=== PATIENT | male | born 1970 | race Caucasian/White ===

== ENCOUNTER 2017-04-21 18:29 | Emergency (ER) | payer BC ==
[~2017-04-21 18:29] MED LIST: CEPH500T7 PO; EZE10 PO; HYDR-3074 PO; NO RTN MEDS; ROSU20TA23 PO
--- NOTE | 2017-04-21 18:35 | ER Report ---
History and Physical Time Seen By MD: 18:34 HPI/ROS CHIEF COMPLAINT: cough HISTORY OF PRESENT ILLNESS: This is a 46 year old male. He has had cough and upper respiratory symptoms since Sunday. Was seen at urgent care this week and evaluation was negative for influenza. He has had cough and the Tessalon Perles and Codeine cough medicine is not helping much. He has poor appetite and is trying to keep drinking fluids, but is drinking less than normal. He has some chest tightness, but has not noticed any wheezing. No nausea or vomiting. No diarrhea. Normal urination. Slight lightheaded at times, but no dizziness. Symptoms significantly worsened over the last 24 hours. Allergies: Coded Allergies: naproxen (Verified Allergy, Mild, 03/09/16) Home Meds Active Scripts Azithromycin (ZITHROMAX) 250 Mg Tablet, 1 TAB PO QDAY, #4 TAB 0 Refills Prov:PERRY SOLANO MD 04/21/17 Reported Medications Ezetimibe (ZETIA) 10 Mg Tablet, 10 MG PO QDAY, TAB 04/21/17 Rosuvastatin Calcium (CRESTOR) 20 Mg Tablet, 20 MG PO QDAY 03/01/16 Reviewed Nurses Notes: Yes Hx Smoking: No Hx Substance Use Disorder: No Hx Alcohol Use: No Constitutional Vital Sign - Last 24 Hours 04/21/17 04/21/17 04/21/17 04/21/17 18:36 18:37 18:39 18:44 Temp 99.9 Pulse 74 70 66 Resp 20 B/P (MAP) 146/88 146/88 (107) Pulse Ox 92 95 93 O2 Delivery Room Air 04/21/17 04/21/17 04/21/17 04/21/17 18:49 18:54 18:54 18:54 Pulse 66 66 66 Resp 18 Pulse Ox 93 93 93 O2 Delivery Room Air 04/21/17 04/21/17 04/21/17 04/21/17 18:59 19:01 19:04 19:09 Pulse 66 69 73 72 Pulse Ox 100 90 92 04/21/17 04/21/17 04/21/17 04/21/17 19:14 19:24 19:29 19:34 Pulse 77 93 79 78 B/P (MAP) 118/68 (85) Pulse Ox 92 88 94 94 04/21/17 04/21/17 04/21/1704/21/18 19:39 19:40 19:45 19:50 Pulse 76 74 78 B/P (MAP) 121/74 (90) Pulse Ox 94 90 94 04/21/17 04/21/17 04/21/17 04/21/17 19:55 19:59 20:00 20:05 Pulse 74 88 Resp 16 B/P (MAP) 120/69 (86) 132/80 (97) Pulse Ox 93 93 92 O2 Delivery Room Air Intake and Output 04/21/17 04/21/17 04/22/17 15:00 23:00 07:00 Intake Total 1000 ml Balance 1000 ml Physical Exam General Appearance: The patient is alert, has no immediate need for airway protection and no current signs of toxicity. Eyes: Pupils equal and round no injection. ENT: Normal oral mucosa. Moist mucous membranes. Posterior oropharynx is erythematous, with mild post-nasal drainage. Nasal mucosa is erythematous. Tympanic membranes are normal. Neck: Neck is supple and non tender. No lymphadenopathy noted. Respiratory: Lungs are a little diminished throughout. No wheezing noted. Has some rhonchi, but no rales. Cardiac: Regular rate and rhythm Gastrointestinal: Abdomen is soft and non tender, no masses, bowel sounds normal. Musculoskeletal: Extremities have full range of motion. Non tender. Skin: No rashes or lesions. DIFFERENTIAL DIAGNOSIS: After history and physical exam differential diagnosis was considered for what appears to be upper respiratory infection. Medical Decision Making Data Points Result Diagram: 04/21/175 04/21/17 1855 Laboratory Hematology Test 04/21/17 18:44 04/21/17 18:55 Influenza Virus Type A (PCR) Positive (NEGATIVE) Influenza Virus Type B (PCR) Negative (NEGATIVE) Red Blood Count 4.67 M/uL (4.00-5.60) Mean Corpuscular Volume 89.1 fL (80.0-96.0) Mean Corpuscular Hemoglobin 30.9 pg (26.0-33.0) Mean Corpuscular Hemoglobin Concent 34.7 g/dL (32.0-36.0) Red Cell Distribution Width 13.2 % (11.5-14.5) Mean Platelet Volume 8.9 fL (7.2-11.1) Neutrophils (%) (Auto) 72.9 % (39.4-72.5) Lymphocytes (%) (Auto) 21.3 % (17.6-49.6) Monocytes (%) (Auto) 5.3 % (4.1-12.4) Eosinophils (%) (Auto) 0.2 % (0.4-6.7) Basophils (%) (Auto) 0.3 % (0.3-1.4) Nucleated RBC Relative Count (auto) 0.0 /100WBC Neutrophils # (Auto) 4.7 K/uL (2.0-7.4) Lymphocytes # (Auto) 1.4 K/uL (1.3-3.6) Monocytes # (Auto) 0.3 K/uL (0.3-1.0) Eosinophils # (Auto) 0.0 K/uL (0.0-0.5) Basophils # (Auto) 0.0 K/uL (0.0-0.1) Nucleated RBC Absolute Count (auto) 0.00 K/uL Sodium Level 141 mmol/L (137-145) Potassium Level 3.8 mmol/L (3.5-5.0) Chloride Level 104 mmol/L (98-107) Carbon Dioxide Level 25 mmol/L (22-30) Blood Urea Nitrogen 12 mg/dl (9-21) Creatinine 1.00 mg/dl (0.66-1.25) Glomerular Filtration Rate Calc > 60.0 Random Glucose 88 mg/dl (75-110) Calcium Level 8.3 mg/dl (8.4-10.2) Total Bilirubin 0.5 mg/dl (0.2-1.3) Aspartate Amino Transf (AST/SGOT) 140 U/L (0-35) Alanine Aminotransferase (ALT/SGPT) 207 U/L (0-56) Alkaline Phosphatase 114 U/L (0-126) Total Protein 6.9 gm/dl (6.3-8.2) Albumin 3.7 g/dl (3.5-5.0) Chemistry Test 04/21/17 18:44 04/21/17 18:55 Influenza Virus Type A (PCR) Positive (NEGATIVE) Influenza Virus Type B (PCR) Negative (NEGATIVE) White Blood Count 6.5 k/uL (4.5-11.0) Red Blood Count 4.67 M/uL (4.00-5.60) Hemoglobin 14.4 g/dL (14.0-18.0) Hematocrit 41.6 % (42.0-52.0) Mean Corpuscular Volume 89.1 fL (80.0-96.0) Mean Corpuscular Hemoglobin 30.9 pg (26.0-33.0) Mean Corpuscular Hemoglobin Concent 34.7 g/dL (32.0-36.0) Red Cell Distribution Width 13.2 % (11.5-14.5) Platelet Count 124 K/uL (150-450) Mean Platelet Volume 8.9 fL (7.2-11.1) Neutrophils (%) (Auto) 72.9 % (39.4-72.5) Lymphocytes (%) (Auto) 21.3 % (17.6-49.6) Monocytes (%) (Auto) 5.3 % (4.1-12.4) Eosinophils (%) (Auto) 0.2 % (0.4-6.7) Basophils (%) (Auto) 0.3 % (0.3-1.4) Nucleated RBC Relative Count (auto) 0.0 /100WBC Neutrophils # (Auto) 4.7 K/uL (2.0-7.4) Lymphocytes # (Auto) 1.4 K/uL (1.3-3.6) Monocytes # (Auto) 0.3 K/uL (0.3-1.0) Eosinophils # (Auto) 0.0 K/uL (0.0-0.5) Basophils # (Auto) 0.0 K/uL (0.0-0.1) Nucleated RBC Absolute Count (auto) 0.00 K/uL Glomerular Filtration Rate Calc > 60.0 Calcium Level 8.3 mg/dl (8.4-10.2) Total Bilirubin 0.5 mg/dl (0.2-1.3) Aspartate Amino Transf (AST/SGOT) 140 U/L (0-35) Alanine Aminotransferase (ALT/SGPT) 207 U/L (0-56) Alkaline Phosphatase 114 U/L (0-126) Total Protein 6.9 gm/dl (6.3-8.2) Albumin 3.7 g/dl (3.5-5.0) EKG/Imaging Imaging EXAMINATION: Chest 2 Views HISTORY: Cough. COMPARISON: 12/25/2016. FINDINGS: New patchy density in the right lung base is suspicious for pneumonia. The left lung is clear. No pleural effusion or pneumothorax. Normal heart size and pulmonary vascularity. Visualized osseous structures appear intact. IMPRESSION: Mild patchy right basilar opacity, suspicious for pneumonia. Report Dictated By: Bebo Pelletier MD at 04/21/2017 7:39 PM ED Course/Re-evaluation Clinical Indication for ER IV: Hydration, IV Access ED Course After the initial evaluation, an influenza swab was obtained, and IV was started and blood work checked. A chest xray was obtained. The patient did feel a little better after the IV fluids and a DuoNeb breathing treatment. Influenza A came back positive. He is outside the window for Tamiflu. His son and daughter are sick with similar symptoms. Daughter sick for 5 days. Son for 2 days. Gave prescription for his son for Tamiflu BID and a prescription for his for the QD prophylaxis dose for 10 days. His x-ray showed a small patch of early pneumonia in the right base as noted. Started Azithromycin. He will keep using the Codeine cough medicine as needed. Rest and increase fluids. Provided an Albuterol inhaler to use as well. Decision to Disposition Date: Apr 21, 2017 Decision to Disposition Time: 19:54 Depart Departure Latest Vital Signs Vital Signs Date Time Temp Pulse Resp B/P (MAP) Pulse Ox O2 Delivery O2 Flow Rate FiO2 04/21/17 20:05 88 16 132/80 (97) 92 Room Air 04/21/17 18:36 99.9 Impression: Primary Impression: Influenza A Additional Impression: Pneumonia Condition: Improved Disposition: HOME OR SELF-CARE New Scripts Azithromycin (ZITHROMAX) 250 Mg Tablet 1 TAB PO QDAY, #4 TAB 0 Refills Prov: PERRY SOLANO MD 04/21/17 Patient Instructions: Community Acquired Pneumonia (ED), Influenza (ED) Additional Instructions: Take the antibiotic Azithromycin 250mg tablets, one daily for 4 days. Use your albuterol inhaler, take 2 inhalations every 4 hours as needed for worsening cough or shortness of breath. Tylenol and/or Ibuprofen as needed for fever or pain. Rest as you can over the next few days. Increase fluid intake. You can keep using the Guaifenesin with Codeine as needed to suppress the cough and get some sleep. Mucinex can help as an expectorant. Problem Qualifiers Additional Impression: Pneumonia Pneumonia type: due to unspecified organism Laterality: right Lung location : lower lobe of lung Qualified Codes: J18.1 - Lobar pneumonia, unspecified organism PERRY SOLANO MD Apr 21, 2017 18:35
[2017-04-21] MEDS ORDERED: ALBUTEROL/IPRATROPIUM 3 ML NEB NEB ONE (18:45)
[2017-04-21] MEDS ORDERED: NS(*) 0.9% 1000 ML BAG 1,000 ML IV ONE (18:50)
[2017-04-21 19:15] LABS: PLATELET COUNT, AUTOMATED 124 K/uL (150-450)
[2017-04-21] MEDS ORDERED: EZET10TA41 PO (19:33)
--- NOTE | 2017-04-21 19:46 | RADIOLOGY IMAGING REPORT ---
FACILITY: [facility] PATIENT NAME: Jeremias Ross : 1970 MR: [id number] V: [id number] EXAM DATE: ORDERING PHYSICIAN: PERRY SOLANO TECHNOLOGIST: Location: [facility] Patient: Jeremias Ross : 1970 Visit/Account:[id number] Date of Sevice: 04/21/2017 EXAMINATION: Chest 2 Views HISTORY: Cough. COMPARISON: 12/25/2016. FINDINGS: New patchy density in the right lung base is suspicious for pneumonia. The left lung is clear. No ple ural effusion or pneumothorax. Normal heart size and pulmonary vascularity. Visualized osseous structures appear intact. IMPRESSION: Mild patchy right basilar opacity, suspicious for pneumonia. Report Dictated By: Bebo Pelletier MD at 04/21/2017 7:39 PM Report E-Signed By: Bebo Pelletier MD at 04/21/2017 7:41 PM WSN:[id number]
[2017-04-21] MEDS ORDERED: AZITHROMYCIN 250 MG TAB PO ONE (19:55)
[2017-04-21] MEDS ORDERED: ALBUTEROL SULFATE 90 MCG/ACT 8.5 GM HNH INH ONE (19:55)
[2017-04-21] MEDS ORDERED: AZIT-1 PO (19:56)
[2017-04-21 20:05] VITALS: BP 132/80
== END 2017-04-21 20:17 | disposition home or self-care (01) ==
LOC: ER 18:41
DX: J09.X2 Influenza due to identified novel influenza A virus with other respiratory manifestations (principal); J18.1 Lobar pneumonia, unspecified organism
CPT/HCPCS: 71046; 85025; 87502; 94640; 96360; 99284; J7030; J7620; Q0144; 82040; 82247; 82310; 82374; 82435; 82565; 82947; 84075; 84132; 84155; 84295; 84450; 84460; 84520

== ENCOUNTER 2017-04-24 06:49 | Emergency (ER) | payer BC ==
[~2017-04-24] VITALS: Ht 177.8 cm; Wt 87.1 kg
[~2017-04-24 06:49] MED LIST changes: +AZIT-1 PO; +EZET10TA41 PO
[2017-04-24] MEDS ORDERED: ALBUTEROL/IPRATROPIUM 3 ML NEB NEB ONE ×2 (07:10→08:10)
--- NOTE | 2017-04-24 07:10 | ER Report ---
History and Physical Time Seen By MD: 07:07 Hx. of Stated Complaint: PT RECENTLY DX WITH FLU A AND PNEUMONIA. STARTED ON Z PACK. THIS IS HIS 4 TH DAY ON IT AND HE FEELS WORSE WITH CHEST TIGHTNESS, AND COUGH IS WORSE AND LESS PRODUCTIVE HPI/ROS CHIEF COMPLAINT: Cough, influenza A HISTORY OF PRESENT ILLNESS: Patient is a 46-year-old male who presents to department with worsening cough and chest congestion. He was seen on April 21 diagnosed with influenza a there is also concern of a patchy infiltrate on chest x-ray. He is currently on day 4 of 5 of Zithromax but states he feels like his symptoms are getting worse. He was also prescribed Tamiflu which she is continuing to take as well. REVIEW OF SYSTEMS: Respiratory: Cough, shortness of breath Cardiovascular: Chest tightness, no palpitations Gastrointestinal: No vomiting, no abdominal pain. Musculoskeletal: No back pain. Allergies: Coded Allergies: naproxen (Verified Allergy, Mild, 04/24/17) Home Meds Active Scripts Guaifenesin/Pseudoephedrne Hcl (MUCINEX D ER 1,200-120 MG TAB) 1 Each Tab.er.12h , 1 EACH PO Q12H for cough, #30 TAB 0 Refills Prov:MONICA HWANG MD 04/24/17 Amoxicillin/Pot Clav 875-125 Mg Tab (AUGMENTIN 875-125 TABLET) 1 Each Tablet, 1 TAB PO Q12H, #14 TAB 0 Refills Prov:MONICA HWANG MD 04/24/17 Azithromycin (ZITHROMAX) 250 Mg Tablet, 1 TAB PO QDAY, #4 TAB 0 Refills Prov:PERRY SOLANO MD 04/21/17 Reported Medications Ezetimibe (ZETIA) 10 Mg Tablet, 10 MG PO QDAY, TAB 04/21/17 Rosuvastatin Calcium (CRESTOR) 20 Mg Tablet, 20 MG PO QDAY 03/01/16 Past Medical/Surgical History Hypercholesterolemia Hx Smoking: No Hx Substance Use Disorder: No Hx Alcohol Use: No Constitutional Vital Sign - Last 24 Hours 04/24/17 04/24/17 04/24/17 04/24/17 06:53 07:14 07:14 08:17 Temp 98.3 Pulse 71 65 Resp 22 16 B/P (MAP) 151/87 Pulse Ox 92 93 97 O2 Delivery Room Air Room Air Room Air 04/24/17 04/24/17 04/24/17 08:17 08:18 08:18 Pulse 69 73 Resp 16 Pulse Ox 100 O2 Delivery Room Air Physical Exam General Appearance: The patient is alert, has no immediate need for airway protection and no current signs of toxicity. Eyes: Pupils equal and round no injection. Respiratory: Chest is noted for wheezing with cough. Cardiac: regular rate and rhythm Gastrointestinal: Abdomen is soft and non tender, no masses, bowel sounds normal. Musculoskeletal: Neck: Neck is supple and non tender. Extremities have full range of motion and are non tender. Skin: No rashes or lesions. Medical Decision Making Data Points Result Diagram: 04/24/1715 04/24/17 0715 Laboratory Hematology Test 04/24/17 07:15 Red Blood Count 4.44 M/uL (4.00-5.60) Mean Corpuscular Volume 88.0 fL (80.0-96.0) Mean Corpuscular Hemoglobin 30.3 pg (26.0-33.0) Mean Corpuscular Hemoglobin Concent 34.4 g/dL (32.0-36.0) Red Cell Distribution Width 13.0 % (11.5-14.5) Mean Platelet Volume 8.5 fL (7.2-11.1) Neutrophils (%) (Auto) 81.0 % (39.4-72.5) Lymphocytes (%) (Auto) 14.9 % (17.6-49.6) Monocytes (%) (Auto) 3.9 % (4.1-12.4) Eosinophils (%) (Auto) 0.1 % (0.4-6.7) Basophils (%) (Auto) 0.1 % (0.3-1.4) Nucleated RBC Relative Count (auto) 0.0 /100WBC Neutrophils # (Auto) 6.8 K/uL (2.0-7.4) Lymphocytes # (Auto) 1.3 K/uL (1.3-3.6) Monocytes # (Auto) 0.3 K/uL (0.3-1.0) Eosinophils # (Auto) 0.0 K/uL (0.0-0.5) Basophils # (Auto) 0.0 K/uL (0.0-0.1) Nucleated RBC Absolute Count (auto) 0.00 K/uL Sodium Level 138 mmol/L (137-145) Potassium Level 3.0 mmol/L (3.5-5.0) Chloride Level 102 mmol/L (98-107) Carbon Dioxide Level 26 mmol/L (22-30) Blood Urea Nitrogen 10 mg/dl (9-21) Creatinine 0.80 mg/dl (0.66-1.25) Glomerular Filtration Rate Calc > 60.0 Random Glucose 93 mg/dl (75-110) Calcium Level 8.5 mg/dl (8.4-10.2) Chemistry Test 04/24/17 07:15 White Blood Count 8.5 k/uL (4.5-11.0) Red Blood Count 4.44 M/uL (4.00-5.60) Hemoglobin 13.5 g/dL (14.0-18.0) Hematocrit 39.1 % (42.0-52.0) Mean Corpuscular Volume 88.0 fL (80.0-96.0) Mean Corpuscular Hemoglobin 30.3 pg (26.0-33.0) Mean Corpuscular Hemoglobin Concent 34.4 g/dL (32.0-36.0) Red Cell Distribution Width 13.0 % (11.5-14.5) Platelet Count 161 K/uL (150-450) Mean Platelet Volume 8.5 fL (7.2-11.1) Neutrophils (%) (Auto) 81.0 % (39.4-72.5) Lymphocytes (%) (Auto) 14.9 % (17.6-49.6) Monocytes (%) (Auto) 3.9 % (4.1-12.4) Eosinophils (%) (Auto) 0.1 % (0.4-6.7) Basophils (%) (Auto) 0.1 % (0.3-1.4) Nucleated RBC Relative Count (auto) 0.0 /100WBC Neutrophils # (Auto) 6.8 K/uL (2.0-7.4) Lymphocytes # (Auto) 1.3 K/uL (1.3-3.6) Monocytes # (Auto) 0.3 K/uL (0.3-1.0) Eosinophils # (Auto) 0.0 K/uL (0.0-0.5) Basophils # (Auto) 0.0 K/uL (0.0-0.1) Nucleated RBC Absolute Count (auto) 0.00 K/uL Glomerular Filtration Rate Calc > 60.0 Calcium Level 8.5 mg/dl (8.4-10.2) EKG/Imaging EKG Interpretation EKG shows normal sinus rhythm with ventricular rate of 60 bpm. Monitor Interpretation: Normal Sinus Rhythm Imaging FACILITY: [facility] [place] PATIENT NAME: Jeremias Ross : 1970 MR: [id number] V: [id number] EXAM DATE: ORDERING PHYSICIAN: MONICA HWANG TECHNOLOGIST: Location: [facility] [place] Patient: Jeremias Ross : 1970 Visit/Account:[id number] Date of Sevice: 04/24/2017 Exam type: CHEST PA AND LAT History: Sick for one week Comparison: April 21, 2017. Findings: There is been interval worsening of the patchy infiltrate in the right lower lobe. Mildly increased linear stranding in the left lung base may represent additional developing infiltrate. There is been development of a tiny right pleural effusion. The cardiac silhouette is normal in size. IMPRESSION: 1. Interval worsening of the right lower lobe infiltrate when compared to April 21, 2017 Increased linear stranding left lung base worrisome for additional developing infiltrate Report Dictated By: Huyen Canales MD at 04/24/2017 8:20 AM Report E-Signed By: Huyen Canales MD at 04/24/2017 8:22 AM WSN:[email or web address] ED Course/Re-evaluation ED Course 04/24/2017 7:09:28 am plan at this time will be to perform chest x-ray CBC electrolytes we'll place an IV and will give a DuoNeb breathing treatment. Re-evaluation 04/24/2017 8:31:55 am chest x-ray shows interval worsening of pneumonia initially seen on April 21. Plan will be to have patient continue his oral Zithromax we'll add Augmentin 1 tablet twice a day for one week. The patient did receive IV Rocephin in the emergency department along with 2 breathing treatments with improvement of symptoms. Decision to Disposition Date: Apr 24, 2017 Decision to Disposition Time: 08:31 Depart Departure Latest Vital Signs Vital Signs Date Time Temp Pulse Resp B/P (MAP) Pulse Ox O2 Delivery O2 Flow Rate FiO2 04/24/17 08:18 73 04/24/17 08:18 100 Room Air 04/24/17 08:17 16 04/24/17 06:53 98.3 151/87 Impression: Primary Impression: Influenza A Additional Impression: Pneumonia Condition: Improved Disposition: HOME OR SELF-CARE New Scripts Guaifenesin/Pseudoephedrne Hcl (MUCINEX D ER 1,200-120 MG TAB) 1 Each Tab.er.12h 1 EACH PO Q12H for cough, #30 TAB 0 Refills Prov: MONICA HWANG MD 04/24/17 Amoxicillin/Pot Clav 875-125 Mg Tab (AUGMENTIN 875-125 TABLET) 1 Each Tablet 1 TAB PO Q12H, #14 TAB 0 Refills Prov: MONICA HWANG MD 04/24/17 Departure Forms: ER Transition Record, Medications Reconciliation, Patient Portal Information Patient Instructions: Community Acquired Pneumonia (DC) Additional Instructions: Continue all your current outpatient medications as directed. Start taking Augmentin 1 tablet twice a day for the next 7 days. Use your albuterol inhaler 1 -2 puffs every 4-6 hours Problem Qualifiers Additional Impression: Pneumonia Pneumonia type: due to unspecified organism Laterality: right Lung location : middle lobe of lung Qualified Codes: J18.1 - Lobar pneumonia, unspecified organism MONICA HWANG MD Apr 24, 2017 07:09
[2017-04-24] MEDS ORDERED: cefTRIAXone 1 GM VIAL IVP ONE (07:20)
[2017-04-24] MEDS ORDERED: NS(*) 0.9% 1000 ML BAG 1,000 ML IV ONE (07:20)
[2017-04-24 07:24] LABS: PLATELET COUNT, AUTOMATED 161 K/uL (150-450)
--- NOTE | 2017-04-24 07:24 | EKG ---
FACILITY: [facility] - [place] PATIENT NAME: HAWA AGUAYO : [id number] MR: [id number] V: [id number] EXAM DATE: ORDERING PHYSICIAN: MONICA HWANG TECHNOLOGIST: YUKO Lopez Reason : SOB Blood Pressure : / mmHG Vent. Rate : 060 BPM Atrial Rate : 060 BPM P-R Int : 160 ms QRS Dur : 084 ms QT Int : 422 ms P-R-T Axes : 048 019 010 degrees QTc Int : 422 ms Normal sinus rhythm Normal ECG When compared with ECG of 25-DEC-2016 21:36, No significant change was found Confirmed by SUSAN NINO ([id number]) on 04/24/2017 8:47:13 AM Referred By: JAIDEN Confirmed By:SUSAN NINO
[2017-04-24] MEDS ORDERED: POTASSIUM CHL 20 MEQ TABCR PO SCH (07:45)
--- NOTE | 2017-04-24 08:27 | RADIOLOGY IMAGING REPORT ---
FACILITY: [facility] [place] PATIENT NAME: Jeremias Ross : 1970 MR: [id number] V: [id number] EXAM DATE: ORDERING PHYSICIAN: MONICA HWANG TECHNOLOGIST: Location: [facility] Patient: Jeremias Ross : 1970 Visit/Account:[id number] Date of Sevice: 04/24/2017 Exam type: CHEST PA AND LAT History: Sick for one week Comparison: April 21, 2017. Findings: There is been interval worsening of the patchy infiltrate in the right lower lobe. Mildly increased linear stranding in the left lung base may represent additional developing infiltrate. There is been development of a tiny right pleural effusion. The cardiac silhouette is normal in size. IMPRESSION: 1. Interval worsening of the right lower lobe infiltrate when compared to April 21, 2017 Increased linear stranding left lung base worrisome for additional developing infiltrate Report Dictated By: Huyen Canales MD at 04/24/2017 8:20 AM Report E-Signed By: Huyen Canales MD at 04/24/2017 8:22 AM WSN:[email or web address]
[2017-04-24] MEDS ORDERED: GUAI-645 PO (08:28)
[2017-04-24] MEDS ORDERED: AMOX-559 PO (08:28)
[2017-04-24 08:46] VITALS: BP 141/76
== END 2017-04-24 08:57 | disposition home or self-care (01) ==
LOC: ER 07:04
DX: J09.X1 Influenza due to identified novel influenza A virus with pneumonia (principal)
CPT/HCPCS: 71046; 85025; 93005; 94640; 96361; 96374; 99284; J0696; J7030; J7620; 82310; 82374; 82435; 82565; 82947; 84132; 84295; 84520

== ENCOUNTER → 2017-06-04 | Outpatient (CLI) | payer BC ==
[~2017-06-04] MED LIST changes: +AMOX-559 PO; +GUAI-645 PO
[2017-06-04 08:57] LABS: LDL CHOLESTEROL 123 mg/dl
== END ==
LOC: LAB 08:16
PROVIDERS: ATTEND Internal Medicine
DX: E78.01 Familial hypercholesterolemia (principal)
CPT/HCPCS: 36415; 82040; 82247; 82310; 82374; 82435; 82465; 82565; 82947; 83718; 84075; 84132; 84155; 84295; 84450; 84460; 84478; 84520